=== PATIENT | male | born 1990 | race Two or more races ===

== ENCOUNTER 2019-04-11 08:05 | Emergency (ER) | payer OTHER ==
[2019-04-11 08:13] VITALS: BP 129/64; PULSE 72; TEMP 98.4; BMI 24.3
--- NOTE | 2019-04-11 08:31 | PDOC ---
History of Present Illness - General Chief Complaint: Injury Stated Complaint: HIT HEAD Time Seen by Provider: 04/11/19 08:13 History Source: Patient Exam Limitations: Clinical Condition - History of Present Illness Initial Comments: 04/11/19 08:36 Patient with no significant past medical history present with complaint of 4- day history of intermittent headache and lightheadedness status post hitting top of his head on the bunk bed a week ago. Patient reported had mild pain after hitting his head which lasted for few days and resolved but started again having lightheadedness, nasal congestion which has been intermittent for 4 days. Denies vomiting, palpitations, blurry vision, change in vision, fever, chills. Denies any other symptoms. Patient has not taken anything for symptoms since a week ago Is this a multiple visit Asthma Patient?: No Timing/Duration: 1 week Past History - Past Medical History Allergies/Adverse Reactions: Allergies Allergy/AdvReac Type Severity Reaction Status Date / Time No Known Allergies Allergy Verified 04/11/19 08:07 Home Medications: Ambulatory Orders Ipratropium [place] 2 spray NS BID PRN #1 spray 04/11/19 Methylprednisolone [Medrol Dose Rene] 4 mg PO ASDIR #21 tablet 04/11/19 Montelukast Na [Singulair -] 10 mg PO DAILY #7 tablet 04/11/19 COPD: No - Immunization History Immunization Up to Date: No - Psycho Social/Smoking Cessation Hx Smoking History: Never smoked Have you smoked in the past 12 months: No Information on smoking cessation initiated: No Hx Alcohol Use: No Drug/Substance Use Hx: No Review of Systems - Review of Systems Able to Perform ROS?: Yes Is the patient limited Mongolian proficient: No Constitutional: No: Chills, Fever, Malaise HEENTM: Yes: Symptoms Reported, See HPI, Nose Congestion. No: Eye Pain, Blurred Vision, Tearing, Recent change in vision, Double Vision, Cataracts, Ear Pain, Ocular Prothesis, Ear Discharge, Nose Pain, Tinnitus, Nose Bleeding, Hearing Loss, Throat Pain, Throat Swelling, Mouth Pain, Dental Problems, Difficulty Swallowing, Mouth Swelling, Other Respiratory: No: Symptoms reported, See HPI, Cough, Orthopnea, Shortness of Breath, SOB with Exertion, SOB at Rest, Stridor, Wheezing, Productive cough, Hemoptysis, Other Cardiac (ROS): Yes: Lightheadedness. No: Symptoms Reported, See HPI, Chest Pain , Edema, Irregular Heart Rate, Palpitations, Syncope, Chest Tightness, Other ABD/GI: No: Symptoms Reported, See HPI, Nausea, Vomiting Musculoskeletal: No: Symptoms Reported, See HPI Integumentary: No: Symptoms Reported, Rash Neurological: Yes: Symptoms reported, See HPI, Headache (intermittent), Dizziness (light headedness) All Other Systems: Reviewed and Negative *Physical Exam - Vital Signs Last Vital Signs Temp Pulse Resp BP Pulse Ox 98.4 F 72 20 129/64 99 04/11/19 08:10 04/11/19 08:10 04/11/19 08:10 04/11/19 08:10 04/11/19 08:10 - Physical Exam 04/11/19 08:41 GENERAL: Well developed, well nourished. Awake and alert. No acute distress. HEENT: Normocephalic, atraumatic. PERRLA, EOMI. No conjunctival pallor. Sclera are non- icteric. Moist mucous membranes. Oropharynx is clear. NECK: Supple. Full ROM. No JVD. Carotid pulses 2+ and symmetric, without bruits. No thyromegaly. No lymphadenopathy. CARDIOVASCULAR: Regular rate and rhythm. No murmurs, rubs, or gallops. Distal pulses are 2+ and symmetric. PULMONARY: No evidence of respiratory distress. Lungs clear to auscultation bilaterally. No wheezing, rales or rhonchi. MUSCULOSKELETAL Normal range of motion at all joints. No bony deformities or tenderness. SKIN: Warm and dry. Normal capillary refill. No rashes. No jaundice. NEUROLOGICAL: Alert, awake, appropriate. Cranial nerves 2-12 intact. No deficits to light touch in face, upper extremities and lower extremities. No motor deficits in the in face, upper extremities and lower extremities. Normal speech. Toes are down-going bilaterally. Gait is normal without ataxia. Normal tandem walking. Normal heel-to-toe walking. PSYCHIATRIC: Cooperative. Good eye contact. Appropriate mood and affect. General Appearance: Yes: Nourished, Appropriately Dressed. No: Apparent Distress Medical Decision Making - Medical Decision Making 04/11/19 08:38 Patient with no significant past medical history present with complaint of 4- day history of intermittent headache and lightheadedness status post hitting top of his head on the bunk bed a week ago. Patient reported had mild pain after hitting his head which lasted for few days and resolved but started again having lightheadedness, nasal congestion which has been intermittent for 4 days. Denies vomiting, palpitations, blurry vision, change in vision, fever, chills. Denies any other symptoms. Patient has not taken anything for symptoms since a week ago Clinical exam unremarkable with normal neuro exam. Normal tandem walking and normal toe to heel walking. Mild tenderness to sinuses which could be the cause of patient's symptoms. Patient be treated for sinusitis and will hold off for head CT due to normal neuro exam and no worsening headache or photophobia and patient be treated on Medrol Rene for sinus and Atrovent nasal spray with Singulair for congestion with urology follow-up Discharge - Discharge Information Problems reviewed: Yes Clinical Impression/Diagnosis: Head contusion Qualifiers: Encounter type: initial encounter Contusion of head detail: scalp Qualified Code(s): S00.03XA - Contusion of scalp, initial encounter Sinusitis Qualifiers: Sinusitis location: ethmoidal Chronicity: acute Recurrence: non-recurrent Qualified Code(s): J01.20 - Acute ethmoidal sinusitis, unspecified Condition: Stable Disposition: HOME - Admission No - Additional Discharge Information Prescriptions: Ipratropium [place] 2 spray NS BID PRN #1 spray PRN Reason: nasal congestion Methylprednisolone [Medrol Dose Rene] 4 mg PO ASDIR #21 tablet Montelukast Na [Singulair -] 10 mg PO DAILY #7 tablet - Follow up/Referral Referrals: Byron Kowalski MD [Staff Physician] - - Patient Discharge Instructions Patient Printed Discharge Instructions: DI for Postconcussion Syndrome Additional Instructions: Your exam was normal and your dizziness is likely caused by concussion from hitting her head and sinus infection. Take prescribed medication as prescribed for sinus congestion. No concern for bleeding your head at this time based on exam. Follow-up with referred neurology if no improvement in symptoms in 2 days. Come back to the emergency room with worsening dizziness, worsening headache, vomiting, lightheadedness. - Post Discharge Activity
== END 2019-04-11 08:32 | disposition home or self-care (01) ==
LOC: JERFT 08:05
DX: S00.03XA Contusion of scalp, initial encounter (principal); J01.20 Acute ethmoidal sinusitis, unspecified; W22.8XXA Striking against or struck by other objects, initial encounter; Y93.89 Activity, other specified; Y92.032 Bedroom in apartment as the place of occurrence of the external cause; Y99.8 Other external cause status
CPT/HCPCS: 99282-25

== ENCOUNTER 2020-08-26 11:11 | Emergency (ER) | payer OTHER ==
[2020-08-26 11:21] VITALS: BP 127/81; PULSE 70; TEMP 98.2; BMI 25.7
[2020-08-26] MEDS ORDERED: IBUPROFEN 400 MG TABLET (FP) PO ONE ×2 (11:51→11:56)
== END 2020-08-26 12:06 | disposition home or self-care (01) ==
LOC: JERFT 11:11
DX: S46.911A Strain of unspecified muscle, fascia and tendon at shoulder and upper arm level, right arm, initial encounter (principal)
CPT/HCPCS: 99284-25